=== PATIENT | male | born 1975 | race Hispanic/Latino ===

== ENCOUNTER 2016-11-09 11:51 | Emergency (ER) | payer SELFPAY ==
[~2016-11-09] VITALS: Ht 162.6 cm; Wt 110.0 kg
[2016-11-09] MEDS ORDERED: NAPROSYN500 MG PO (12:51)
[2016-11-09] MEDS ORDERED: AMOXICILLIN500 MG PO (12:51)
[2016-11-09 13:09] VITALS: BP 157/93
== END 2016-11-09 13:15 | disposition home or self-care (01) | DRG 603 ==
LOC: ED 11:51
DX: L03.116 Cellulitis of left lower limb (principal)

== ENCOUNTER 2019-06-16 | Emergency (ER) | payer SELFPAY ==
[~2019-06-16] MED LIST: AMOXICILLIN500 MG PO; NAPROSYN500 MG PO
[2019-06-16 23:26] LABS: HEMATOCRIT 44.3 % (39.0-50.0); HEMOGLOBIN 14.9 g/dl (14.0-18.0); IMMATURE GRANULOCYTES 0.9 % (0.0-5.0); MEAN CELL VOLUME 81.6 fL CALC (80.0-100.0); MEAN CORPUSCULAR HGB 27.4 pG CALC (26.0-32.0); MEAN CORPUSCULAR HGB CONC 33.6 g/L CALC (32.0-36.0); NEUT# 4.22 thou/uL (1.82-7.42); RED BLOOD COUNT 5.43 mill/uL (4.70-6.10); RED CELL DISTRI WIDTH 12.8 % (11.5-15.5)
[2019-06-16 23:27] LABS: ALBUMIN 3.8 g/dL (3.2-5.0); ALKALINE PHOSPHATASE 98 u/l (38-126); ANION GAP 13 (6-22 (CALC)); BILIRUBIN, TOTAL 0.6 mg/dL (0.0-1.4); BUN 11 mg/dL (9-20); BUN/CREATININE RATIO 16 (12-20 (CALC)); CARBON DIOXIDE 26 mmol/l (22-30); CHLORIDE 93 mmol/l (95-108); CREATININE 0.7 mg/dL (0.7-1.3); GFR > 60 ML/MIN (>=60 (CALC)); GFR FOR AFR.AMER. > 60 ML/MIN (>=60 (CALC)); POTASSIUM 4.1 mmol/l (3.5-5.1); SGOT/AST 89 u/l (17-59); SODIUM 128 mmol/l (137-146)
[2019-06-17] MEDS ORDERED: CIPROFLOXACN500 MG PO (00:25)
[2019-06-17] MEDS ORDERED: TAM75CAP PO (00:25)
[2019-06-17] MEDS ORDERED: VENTOLIN HF1 IN (00:25)
[2019-06-17] MEDS ORDERED: CODEINE/GUAIFEN1 SOL PO (00:25)
== END 2019-06-17 00:40 | disposition home or self-care (01) | DRG 195 ==
PROVIDERS: Emergency Medicine
DX: J10.00 Influenza due to other identified influenza virus with unspecified type of pneumonia (principal)